=== PATIENT | female | born 1960 | race African-American/Black ===

== ENCOUNTER 2016-11-28 13:11 | Outpatient (CLI) | payer MEDICAID ==
[2016-11-28] MEDS ORDERED: CELE200C PO (13:47)
[2016-11-28] MEDS ORDERED: HYDR10TA4 PO (13:47)
[2016-11-28] MEDS ORDERED: SERT50TA5 PO (13:47)
[2016-11-28 14:37] LABS: BLOOD UREA NITROGEN 11 mg/dL (7-18)
[2016-11-28 14:40] LABS: ASPARTATE AMINO TRANSFERASE 237 U/L (15-37)
[2016-11-28 15:21] LABS: HIV 1&2 ANTIBODY SCREEN Nonreactive (Nonreactive); HIV-1 p24 ANTIGEN Nonreactive (Nonreactive)
[2016-12-09] MEDS ORDERED: OxyconTIN ER 10 MG TAB.ER ONE (11:04)
== END 2016-12-10 13:30 | disposition home or self-care (01) ==
LOC: STAR 13:11
PROVIDERS: ATTEND Orthopaedic Surgery
DX: Z01.818 Encounter for other preprocedural examination (principal); M16.11 Unilateral primary osteoarthritis, right hip
CPT/HCPCS: 36415; 80053; 83036; 85025; 85610; 85730; 86703; 87081; 87147; 87899; 93005; G0435

== ENCOUNTER 2016-12-09 12:45 | Inpatient (IN) | payer MEDICAID ==
[~2016-12-09] VITALS: Ht 167.6 cm; Wt 69.1 kg
[~2016-12-09 12:45] MED LIST: BISACODYL 10 MG SUPP PR PRN; CEFAZOLIN 1,000 MG ONE; CELE200C PO; DEXAMETHASONE 4 MG/ML, 1ML ONE; DIPHENHYDRAMINE 25 MG CAPSULE PO PRN; EPINEPHRINE 1 MG/ML, 1ML ONE; FENTANYL PF 250 MCG/5ML ONE; GABAPENTIN 300 MG CAPSULE ONE; GABAPENTIN 300 MG CAPSULE PO ONE; HYDR10TA4 PO; KETAMINE 10 MG/ML, 20ML ONE; KETOROLAC 60 MG/2 ML ONE; MAGNESIUM HYDROXIDE 8%, 30ML UDC PO PRN; MIDAZOLAM 1 MG/ML, 2ML ONE; ONDANSETRON 2MG/ML, 2ML IVPush PRN; ONDANSETRON 2MG/ML, 2ML ONE; ONDANSETRON ODT 4 MG PO PRN; PHENYLEPHRINE 10 MG/ML ONE; POTASSIUM CHLORIDE 20 MEQ in D5%-0.45% NACL 1,000 ML IV SCH; PROMETHAZINE 25 MG SUPP PR PRN; PROPOFOL 10 MG/ML, 50ML ONE; ROPIvacaine/PF 0.2%, 20 ML ONE; SENNA/DOCUSATE TABLET PO PRN; SERT50TA5 PO; SERTRALINE 50MG TABLET PO SCH; SODIUM CHLORIDE 0.9% 50 ML ONE; TRANEXAMIC ACID 100 MG/ML, 10ML ONE; ZOLPIDEM 5MG TABLET PO PRN; hydrOXyzine 10MG TABLET PO PRN
[2016-12-09] MEDS ORDERED: OXYcodone 5 MG/5 ML ORAL.SOL UDC ONE (15:14)
[2016-12-09] MEDS ORDERED: HYDROmorphone 1 MG/ML, 1ML ONE (17:24)
[2016-12-09] MEDS: HYDROmorphone 1 MG/ML, 1ML IV PRN (17:28)
[2016-12-09] MEDS ORDERED: OXYcodone IR 5MG TABLET ONE (20:26)
[2016-12-09] MEDS: CEFAZOLIN PMX 1GM/50ML 50 ML IVPB SCH (20:34)
[2016-12-09] MEDS: DIAZEPAM 5 MG TABLET PO PRN (22:03)
[2016-12-09] MEDS ORDERED: DIAZEPAM 5 MG TABLET ONE (22:05)
[2016-12-10] MEDS ORDERED: DOCUSATE 100 MG CAPSULE ONE (00:02)
[2016-12-10] MEDS: DOCUSATE 100 MG CAPSULE PO SCH ×2 (00:03→08:40)
[2016-12-10] MEDS ORDERED: OXYcodone IR 5MG TABLET ONE ×4 (00:19→13:22)
[2016-12-10] MEDS: OXYcodone 5 MG/5 ML ORAL.SOL UDC PO PRN ×3 (00:33→08:40)
[2016-12-10] MEDS: HYDROmorphone 1 MG/ML, 1ML IV PRN ×2 (03:00→06:45)
[2016-12-10] MEDS ORDERED: HYDROmorphone 1 MG/ML, 1ML ONE ×2 (03:00→06:44)
[2016-12-10] MEDS ORDERED: DIAZEPAM 5 MG TABLET ONE ×2 (03:10→08:27)
[2016-12-10] MEDS: DIAZEPAM 5 MG TABLET PO PRN ×2 (03:11→08:40)
[2016-12-10] MEDS ORDERED: CEFAZOLIN PMX 1GM/50ML 50 ML ONE (04:36)
[2016-12-10] MEDS: CEFAZOLIN PMX 1GM/50ML 50 ML IVPB SCH (04:40)
[2016-12-10] MEDS ORDERED: TAMSULOSIN 0.4 MG CAP.ER.24H PO SCH (06:00)
[2016-12-10] MEDS ORDERED: ASPIRIN 81 MG TABLET EC PO SCH (09:00)
[2016-12-10] MEDS ORDERED: DEXAMETHASONE 4 MG/ML, 1ML IV ONE (09:00)
[2016-12-10] MEDS ORDERED: KETOROLAC 30 MG/1 ML IV SCH (12:40)
[2016-12-10] MEDS ORDERED: SCOPOLAMINE PATCH, 1.5MG PATCH.TD72 TD PRN (13:30)
[2016-12-11] MEDS ORDERED: LACTATED RINGERS 1,000 ML IV SCH (12:21)
[2016-12-11] MEDS ORDERED: VANCOMYCIN 1,400 MG in SODIUM CHLORIDE 0.9% 250 ML IV ONE (12:30)
[2016-12-11] MEDS ORDERED: PHARMACOKINETIC CONSULTATION MC ONE (12:30)
[2016-12-11] MEDS ORDERED: VANCOMYCIN PER PHARMACY MC ONE (12:30)
[2016-12-11] MEDS ORDERED: OxyconTIN ER 10 MG TAB.ER PO ONE (13:00)
== END 2016-12-10 10:43 | disposition home or self-care (01) | DRG 470 ==
LOC: ORIP 12:45
PROVIDERS: ADMIT Orthopaedic Surgery; ATTEND Orthopaedic Surgery
PROC: 0SR902Z Replacement of Right Hip Joint with Metal on Polyethylene Synthetic Substitute, Open Approach (ICD-10-PCS; principal; 2016-12-09 12:45)
DX: M16.11 Unilateral primary osteoarthritis, right hip (principal); F32.9 Major depressive disorder, single episode, unspecified
CPT/HCPCS: 36415; 86850; 86900; C1713; J0171; J0690; J1100; J1170; J1885; J2250; J2405; J2704; J2795; J3010; J3480; C1776; J2370

== ENCOUNTER 2016-12-21 15:20 | Emergency (ER) | payer MEDICAID ==
[~2016-12-21] VITALS: Ht 167.6 cm; Wt 68.5 kg
[~2016-12-21 15:20] MED LIST changes: -BISACODYL 10 MG SUPP PR PRN; -CEFAZOLIN 1,000 MG ONE; -DEXAMETHASONE 4 MG/ML, 1ML ONE; -DIPHENHYDRAMINE 25 MG CAPSULE PO PRN; -EPINEPHRINE 1 MG/ML, 1ML ONE; -FENTANYL PF 250 MCG/5ML ONE; -GABAPENTIN 300 MG CAPSULE ONE; -GABAPENTIN 300 MG CAPSULE PO ONE; -KETAMINE 10 MG/ML, 20ML ONE; -KETOROLAC 60 MG/2 ML ONE; -MAGNESIUM HYDROXIDE 8%, 30ML UDC PO PRN; -MIDAZOLAM 1 MG/ML, 2ML ONE; -ONDANSETRON 2MG/ML, 2ML IVPush PRN; -ONDANSETRON 2MG/ML, 2ML ONE; -ONDANSETRON ODT 4 MG PO PRN; -PHENYLEPHRINE 10 MG/ML ONE; -POTASSIUM CHLORIDE 20 MEQ in D5%-0.45% NACL 1,000 ML IV SCH; -PROMETHAZINE 25 MG SUPP PR PRN; -PROPOFOL 10 MG/ML, 50ML ONE; -ROPIvacaine/PF 0.2%, 20 ML ONE; -SENNA/DOCUSATE TABLET PO PRN; -SERTRALINE 50MG TABLET PO SCH; -SODIUM CHLORIDE 0.9% 50 ML ONE; -TRANEXAMIC ACID 100 MG/ML, 10ML ONE; -ZOLPIDEM 5MG TABLET PO PRN; -hydrOXyzine 10MG TABLET PO PRN
[2016-12-21] MEDS ORDERED: ASPI-515 PO (15:58)
[2016-12-21] MEDS ORDERED: BISA-49 PO (15:58)
[2016-12-21] MEDS ORDERED: HYDR-3240 PO ×2 (15:58)
[2016-12-21 16:40] LABS: BLOOD UREA NITROGEN 13 mg/dL (7-18)
[2016-12-21 16:41] LABS: ACETAMINOPHEN < 2 mcg/mL (10-30)
[2016-12-21 17:43] VITALS: BP 114/78
== END 2016-12-21 17:46 | disposition home or self-care (01) ==
LOC: ED 16:39
DX: G56.03 Carpal tunnel syndrome, bilateral upper limbs (principal)
CPT/HCPCS: 36415; 80048; 80307; 80329; 82040; 82330; 85025; 99284; G0480

== ENCOUNTER → 2017-10-29 | Outpatient (CLI) | payer MEDICAID ==
[~2017-10-29] MED LIST changes: +ALBU18HF INH; +ASPI-515 PO; +BISA-49 PO; +HYDR-3240 PO; +IBUP-1223 PO; +LISI-170 PO
[2017-10-29 14:05] LABS: MICROSCOPIC NOT IND
[2017-10-29 14:10] LABS: CULTURE INDICATED? NO
[2017-10-29 14:16] LABS: BASOPHILS # (AUTO) 0.05 x10^3/uL (0-0.1); BASOPHILS % (AUTO) 1 % (0-1); EOSINOPHILS # (AUTO) 0.12 x10^3/uL (0-0.4); EOSINOPHILS % (AUTO) 2 % (1-7); LYMPHOCYTES # (AUTO) 2.58 x10^3/uL (1-3.4); LYMPHOCYTES % (AUTO) 43 % (22-44); MD NO; MEAN CORPUSCULAR HEMOGLOBIN 31.1 pg (27.0-34.8); MEAN CORPUSCULAR HGB CONC 34.3 g/dL (32.4-35.8); MEAN CORPUSCULAR VOLUME 90.8 fL (80-100); MEAN PLATELET VOLUME 8.3 fL (7.4-10.4); MONOCYTES # (AUTO) 0.38 x10^3/uL (0.2-0.8); MONOCYTES % (AUTO) 6 % (2-9); NEUTROPHILS # (AUTO) 2.91 x10^3/uL (1.8-6.8); NEUTROPHILS % (AUTO) 48 % (42-75); PLATELET COUNT 298 x10^3/uL (130-400); RED BLOOD COUNT 4.59 x10^6/uL (3.82-5.3); RED CELL DISTRIBUTION WIDTH 13.6 % (9.6-15.2)
[2017-10-29 14:21] LABS: ALBUMIN 4.1 g/dL (3.4-5.0); ANION GAP 7 mmol/L (5-15); CALCIUM 9.5 mg/dL (8.5-10.1); CHLORIDE 105 mmol/L (98-107)
[2017-10-29 14:25] LABS: ALANINE AMINOTRANSFERASE 30 U/L (12-78); ALKALINE PHOSPHATASE 119 U/L (45-117); BILIRUBIN,TOTAL 0.3 mg/dL (0.2-1.0); CREATININE 1.09 mg/dL (0.55-1.02); TOTAL PROTEIN 9.1 g/dL (6.4-8.2)
[2017-10-29 14:31] LABS: PROTHROMBIN TIME 10.4 Seconds (9.6-11.5)
[2017-10-29 14:43] LABS: HEMOGLOBIN A1C 5.6 % (4.2-6.3)
== END | disposition home or self-care (01) ==
LOC: STAR 12:37
PROVIDERS: ATTEND Orthopaedic Surgery
DX: Z01.818 Encounter for other preprocedural examination (principal); M16.12 Unilateral primary osteoarthritis, left hip; R79.89 Other specified abnormal findings of blood chemistry
CPT/HCPCS: 36415; 80053; 81003; 83036; 85025; 85610; 85730; 87081; 87806; G0475

== ENCOUNTER 2017-12-08 07:09 | Inpatient (IN) | payer MEDICAID ==
[~2017-12-08] VITALS: Ht 167.6 cm; Wt 85.4 kg
[~2017-12-08 07:09] MED LIST changes: +EPINEPHRINE 1 MG/ML, 1ML ONE; +KETOROLAC 60 MG/2 ML ONE; +ROPIvacaine/PF 0.2%, 20 ML ONE; +TRANEXAMIC ACID 100 MG/ML, 10ML ONE
[2017-12-08] MEDS ORDERED: LACTATED RINGERS 1,000 ML IV SCH (07:33)
[2017-12-08] MEDS ORDERED: LIDOCAINE-MPF 1%, 2ML ONE (07:51)
[2017-12-08] MEDS ORDERED: LISI30TA4 PO (08:00)
[2017-12-08] MEDS ORDERED: ACETAMINOPHEN 500 MG TABLET PO ONE (08:00)
[2017-12-08] MEDS ORDERED: PLEASE ENTER HEIGHT AND WEIGHT MC SCH (08:00)
[2017-12-08] MEDS ORDERED: VANCOMYCIN PER PHARMACY MC ONE (08:00)
[2017-12-08] MEDS ORDERED: GABAPENTIN 300 MG CAPSULE PO ONE (08:00)
[2017-12-08] MEDS ORDERED: LIDOCAINE-MPF 1%, 2ML INFIL ONE (08:00)
[2017-12-08] MEDS ORDERED: VANCOMYCIN 1,400 MG in SODIUM CHLORIDE 0.9% 250 ML IV ONE (08:00)
[2017-12-08] MEDS ORDERED: FENTANYL PF 100 MCG/2ML ONE (08:38)
[2017-12-08] MEDS ORDERED: MIDAZOLAM 1 MG/ML, 2ML ONE (08:38)
[2017-12-08] MEDS ORDERED: ONDANSETRON ODT 8 MG PO ONE (08:40)
[2017-12-08] MEDS ORDERED: DIAZEPAM 5 MG TABLET PO ONE (09:00)
[2017-12-08] MEDS ORDERED: OxyconTIN ER 20 MG TAB.ER PO ONE (09:00)
[2017-12-08] MEDS ORDERED: PROPOFOL 50 ML ONE ×2 (09:27→10:31)
[2017-12-08] MEDS ORDERED: CEFAZOLIN 1,000 MG ONE (09:30)
[2017-12-08] MEDS ORDERED: DEXAMETHASONE 4 MG/ML, 1ML ONE ×2 (10:26)
[2017-12-08] MEDS ORDERED: PROMETHAZINE 25 MG/ML, 1ML IV PRN (10:30)
[2017-12-08] MEDS ORDERED: EPHEDRINE 50 MG/ML, 1ML IM PRN (10:30)
[2017-12-08] MEDS ORDERED: SCOPOLAMINE PATCH, 1.5MG PATCH.TD72 TD PRN ×2 (10:30→11:30)
[2017-12-08] MEDS ORDERED: OXYcodone 5 MG/5 ML ORAL.SOL UDC PO PRN (10:30)
[2017-12-08] MEDS ORDERED: MORPHINE SULFATE 4 MG/ML, 1ML IVPush PRN (10:30)
[2017-12-08] MEDS ORDERED: PROMETHAZINE 25 MG/ML, 1ML IM PRN (10:30)
[2017-12-08] MEDS ORDERED: ALBUTEROL/IPRATROPIUM 2.5MG/0.5MG, 3 ML NPPB PRN (10:30)
[2017-12-08] MEDS ORDERED: MEPERIDINE/PF 25MG/0.5ML IVPush PRN (10:30)
[2017-12-08] MEDS ORDERED: LABETALOL 5MG/ML, 20ML IV PRN (10:30)
[2017-12-08] MEDS ORDERED: hydrALAzine 20 MG/ML, 1ML IV PRN (10:30)
[2017-12-08] MEDS ORDERED: DIAZEPAM 5 MG/ML, 2ML IVPush PRN (10:30)
[2017-12-08] MEDS ORDERED: MIDAZOLAM 1 MG/ML, 2ML IV PRN (10:30)
[2017-12-08] MEDS ORDERED: DIAZEPAM 5 MG TABLET PO PRN (11:30)
[2017-12-08] MEDS ORDERED: CEFAZOLIN PMX 1GM/50ML 50 ML IVPB SCH (11:30)
[2017-12-08] MEDS ORDERED: MAGNESIUM HYDROXIDE 8%, 30ML UDC PO PRN (11:30)
[2017-12-08] MEDS ORDERED: OXYcodone IR 5MG TABLET PO PRN (11:30)
[2017-12-08] MEDS ORDERED: PROMETHAZINE 12.5 MG SUPP PR PRN (11:30)
[2017-12-08] MEDS ORDERED: ONDANSETRON 4 MG TABLET PO PRN (11:30)
[2017-12-08] MEDS ORDERED: DIPHENHYDRAMINE 25 MG CAPSULE PO PRN (11:30)
[2017-12-08] MEDS ORDERED: ONDANSETRON 2MG/ML, 2ML IV PRN (11:30)
[2017-12-08] MEDS ORDERED: TRANEXAMIC ACID 1,000 MG in SODIUM CHLORIDE 0.9% 100 ML IVPB ONE (11:30)
[2017-12-08 14:00] VITALS: BP 147/97
[2017-12-08] MEDS: HYDROcodone/APAP 5/325 TABLET PO PRN (15:42)
[2017-12-08] MEDS ORDERED: PNEUMOCOCCAL 23 VACCINE IM-VACC ONE (17:00)
[2017-12-08] MEDS: HYDROmorphone 1 MG/ML, 1ML IV PRN ×2 (17:36→20:12)
[2017-12-08 19:20] VITALS: BP 151/91
[2017-12-08] MEDS: LISINOPRIL 10 MG TABLET PO SCH (20:13)
[2017-12-08] MEDS: DOCUSATE 100 MG CAPSULE PO SCH (21:00)
[2017-12-08] MEDS ORDERED: hydrOXyzine 10MG TABLET PO SCH (21:00)
[2017-12-08] MEDS: CEFAZOLIN PMX 1GM/50ML 50 ML IVPB SCH (22:19)
[2017-12-09] VITALS: BP 152/81
[2017-12-09] MEDS: HYDROmorphone 1 MG/ML, 1ML IV PRN ×4 (02:01→20:31)
[2017-12-09 03:54] VITALS: BP 144/82
[2017-12-09] MEDS: CEFAZOLIN PMX 1GM/50ML 50 ML IVPB SCH (05:56)
[2017-12-09 07:33] VITALS: BP 166/101
[2017-12-09] MEDS ORDERED: FENTANYL PF 100 MCG/2ML ONE (08:29)
[2017-12-09] MEDS ORDERED: hydrALAzine 20 MG/ML, 1ML IV PRN (08:30)
[2017-12-09] MEDS ORDERED: MIDAZOLAM 1 MG/ML, 2ML IV PRN (08:30)
[2017-12-09] MEDS ORDERED: FENTANYL PF 100 MCG/2ML IV PRN (08:30)
[2017-12-09] MEDS ORDERED: PROMETHAZINE 25 MG/ML, 1ML IV PRN (08:30)
[2017-12-09] MEDS ORDERED: ONDANSETRON ODT 8 MG PO PRN (08:30)
[2017-12-09] MEDS ORDERED: OXYcodone 5 MG/5 ML ORAL.SOL UDC PO PRN (08:30)
[2017-12-09] MEDS ORDERED: ALBUTEROL SULFATE 2.5 MG/3 ML NPPB PRN (08:30)
[2017-12-09] MEDS ORDERED: PROMETHAZINE 12.5 MG SUPP PR PRN (08:30)
[2017-12-09] MEDS ORDERED: MEPERIDINE/PF 25MG/0.5ML IVPush PRN (08:30)
[2017-12-09] MEDS ORDERED: LABETALOL 5MG/ML, 20ML IV PRN (08:30)
[2017-12-09] MEDS: FENTANYL PF 100 MCG/2ML IV PRN ×2 (08:31→08:40)
[2017-12-09] MEDS ORDERED: OXYcodone 5 MG/5 ML ORAL.SOL UDC ONE (08:32)
[2017-12-09] MEDS ORDERED: MORPHINE SULFATE 4 MG/ML, 1ML ONE ×2 (08:56→09:15)
[2017-12-09] MEDS: MORPHINE SULFATE 4 MG/ML, 1ML IVPush PRN ×3 (08:58→09:18)
[2017-12-09] MEDS ORDERED: LABETALOL 5MG/ML, 20ML ONE (09:03)
[2017-12-09] MEDS: SERTRALINE 50MG TABLET PO SCH (10:24)
[2017-12-09] MEDS: DOCUSATE 100 MG CAPSULE PO SCH ×2 (10:24→20:32)
[2017-12-09] MEDS: LISINOPRIL 10 MG TABLET PO SCH ×2 (10:24→20:32)
[2017-12-09 13:14] VITALS: BP 134/77
[2017-12-09] MEDS ORDERED: KETOROLAC 30 MG/1 ML IV SCH (14:00)
[2017-12-09] MEDS: ASPIRIN 325 MG TABLET EC PO SCH (18:11)
[2017-12-09 19:20] VITALS: BP 159/69
[2017-12-09] MEDS: hydrOXyzine 50MG TABLET PO SCH (21:00)
[2017-12-09 23:45] VITALS: BP 160/86
[2017-12-10 02:19] VITALS: BP 156/71
[2017-12-10] MEDS: HYDROcodone/APAP 5/325 TABLET PO PRN ×2 (03:25→08:07)
[2017-12-10] MEDS: ASPIRIN 325 MG TABLET EC PO SCH (06:13)
[2017-12-10 07:20] VITALS: BP 160/89
[2017-12-10] MEDS: hydrOXyzine 50MG TABLET PO SCH (08:07)
[2017-12-10] MEDS: SERTRALINE 50MG TABLET PO SCH (08:08)
[2017-12-10] MEDS: LISINOPRIL 10 MG TABLET PO SCH (08:08)
[2017-12-10] MEDS: DOCUSATE 100 MG CAPSULE PO SCH (08:08)
[2017-12-10] MEDS ORDERED: ONDA4TAB7 PO (09:00)
[2017-12-10] MEDS ORDERED: OXYC5CAP2 PO (09:00)
[2017-12-10] MEDS ORDERED: DOCU-131 PO (09:00)
[2017-12-10] MEDS ORDERED: DIAZ5TAB PO (09:00)
[2017-12-10] MEDS ORDERED: CELE200C PO (09:00)
[2017-12-10] MEDS ORDERED: TRAM50TA2 PO (09:01)
== END 2017-12-10 12:05 | disposition home or self-care (01) | DRG 470 ==
LOC: INTOOBSV 07:09 → ORIP 07:09 → 4NOR 13:47 → OBSVTOIN 12-09 14:53 → DCLOUNGE 12-10 11:50
PROVIDERS: ADMIT Orthopaedic Surgery; ATTEND Orthopaedic Surgery
PROC: 0SRB0JZ Replacement of Left Hip Joint with Synthetic Substitute, Open Approach (ICD-10-PCS; principal; 2017-12-08 09:30)
PROC: 0SSBXZZ Reposition Left Hip Joint, External Approach (ICD-10-PCS; 2017-12-09)
DX: T84.021A Dislocation of internal left hip prosthesis, initial encounter (principal); M16.12 Unilateral primary osteoarthritis, left hip; Y83.8 Other surgical procedures as the cause of abnormal reaction of the patient, or of later complication, without mention of misadventure at the time of the procedure; Y79.2 Prosthetic and other implants, materials and accessory orthopedic devices associated with adverse incidents; Y92.89 Other specified places as the place of occurrence of the external cause
CPT/HCPCS: 36415; 72170; 73523; 76000; 86850; 86900; C1713; G0378; J0171; J0690; J1100; J1170; J1885; J2250; J2704; J2795; J3010; J3370; J3490; Q0162; C1776; J7050; J7120; Q0163

== ENCOUNTER 2017-12-17 21:17 | Observation (INO) | payer MEDICAID ==
[~2017-12-17] VITALS: Ht 167.6 cm; Wt 73.1 kg
[~2017-12-17 21:17] MED LIST changes: +DIAZ5TAB PO; +DOCU-131 PO; -EPINEPHRINE 1 MG/ML, 1ML ONE; -KETOROLAC 60 MG/2 ML ONE; +LISI30TA4 PO; +ONDA4TAB7 PO; +OXYC5CAP2 PO; -ROPIvacaine/PF 0.2%, 20 ML ONE; +TRAM50TA2 PO; -TRANEXAMIC ACID 100 MG/ML, 10ML ONE
[2017-12-17] MEDS ORDERED: SODIUM CHLORIDE FLUSH 10ML SYR IVF ONE (23:00)
[2017-12-17 23:23] LABS: BASOPHILS # (AUTO) 0.02 x10^3/uL (0-0.1); BASOPHILS % (AUTO) 0 % (0-1); EOSINOPHILS # (AUTO) 0.14 x10^3/uL (0-0.4); EOSINOPHILS % (AUTO) 2 % (1-7); LYMPHOCYTES # (AUTO) 2.65 x10^3/uL (1-3.4); LYMPHOCYTES % (AUTO) 35 % (22-44); MD NO; MEAN CORPUSCULAR HEMOGLOBIN 30.2 pg (27.0-34.8); MEAN CORPUSCULAR HGB CONC 33.7 g/dL (32.4-35.8); MEAN CORPUSCULAR VOLUME 89.6 fL (80-100); MEAN PLATELET VOLUME 7.7 fL (7.4-10.4); MONOCYTES # (AUTO) 0.68 x10^3/uL (0.2-0.8); MONOCYTES % (AUTO) 9 % (2-9); NEUTROPHILS # (AUTO) 4.15 x10^3/uL (1.8-6.8); NEUTROPHILS % (AUTO) 54 % (42-75); PLATELET COUNT 401 x10^3/uL (130-400); RED BLOOD COUNT 3.64 x10^6/uL (3.82-5.3); RED CELL DISTRIBUTION WIDTH 12.8 % (9.6-15.2)
[2017-12-17 23:35] LABS: ANION GAP 9 mmol/L (5-15); CHLORIDE 101 mmol/L (98-107)
[2017-12-17 23:40] LABS: ALANINE AMINOTRANSFERASE 24 U/L (12-78); ALKALINE PHOSPHATASE 107 U/L (45-117); BILIRUBIN,TOTAL 0.2 mg/dL (0.2-1.0); CREATININE 1.03 mg/dL (0.55-1.02); TOTAL PROTEIN 7.5 g/dL (6.4-8.2); TROPONIN I < 0.015 ng/mL (0.000-0.045)
[2017-12-18] MEDS ORDERED: OMNIPAQUE 350 MG/ML, 100ML BOTTLE ONE (01:23)
[2017-12-18] MEDS ORDERED: D5%-0.45NACL+KCL 20MEQ 1,000 ML IV SCH (02:08)
[2017-12-18] MEDS ORDERED: NICOTINE 7 MG/24 HR PATCH.TD24 TD SCH (02:30)
[2017-12-18] MEDS ORDERED: ACETAMINOPHEN 325 MG TABLET PO PRN (02:30)
[2017-12-18] MEDS ORDERED: ENOXAPARIN 40 MG/0.4 ML SQ SCH (02:30)
[2017-12-18] MEDS ORDERED: LABETALOL 5MG/ML, 20ML IVPush PRN (02:30)
[2017-12-18] MEDS ORDERED: ONDANSETRON 2MG/ML, 2ML IVPush PRN (02:30)
[2017-12-18] MEDS ORDERED: TEMAZEPAM 15 MG CAPSULE PO PRN (02:30)
[2017-12-18] MEDS ORDERED: ONDANSETRON ODT 4 MG PO PRN (02:30)
[2017-12-18] MEDS ORDERED: NITROGLYCERIN 0.4 MG BOTTLE (25 TABS) SL PRN (02:30)
[2017-12-18] MEDS ORDERED: DOCUSATE 100 MG CAPSULE PO PRN (02:30)
[2017-12-18 02:54] LABS: TROPONIN I < 0.015 ng/mL (0.000-0.045)
[2017-12-18] MEDS ORDERED: ENOXAPARIN 40 MG/0.4 ML ONE (02:55)
[2017-12-18] MEDS ORDERED: NICOTINE 7 MG/24 HR PATCH.TD24 ONE (03:13)
[2017-12-18] MEDS ORDERED: ASPIRIN 325 MG TABLET EC PO SCH (06:00)
[2017-12-18 08:19] LABS: TROPONIN I < 0.015 ng/mL (0.000-0.045)
[2017-12-18] MEDS ORDERED: REGADENOSON 0.4 MG/5 ML SYRINGE ONE (08:31)
[2017-12-18] MEDS ORDERED: FAMOTIDINE 20 MG/2 ML IVPush SCH (09:00)
[2017-12-18] MEDS ORDERED: FAMOTIDINE 20 MG/2 ML ONE (10:04)
[2017-12-18 11:52] VITALS: BP 130/82
[2017-12-18] MEDS ORDERED: OXYcodone IR 5MG TABLET PO PRN (12:00)
[2017-12-18 13:22] VITALS: BP 137/91
== END 2017-12-18 18:04 | disposition home or self-care (01) ==
LOC: ED 12-18 02:22 → INTOOBSV 12-18 02:47 → EDIP 12-18 02:47 → 5SO 12-18 11:25
PROVIDERS: ADMIT Internal Medicine; ATTEND Internal Medicine
DX: R07.9 Chest pain, unspecified (principal); I10 Essential (primary) hypertension; F32.9 Major depressive disorder, single episode, unspecified; R00.0 Tachycardia, unspecified; R79.1 Abnormal coagulation profile; F17.210 Nicotine dependence, cigarettes, uncomplicated; F12.90 Cannabis use, unspecified, uncomplicated; F41.9 Anxiety disorder, unspecified; Z96.642 Presence of left artificial hip joint
CPT/HCPCS: 36415; 71045; 71275; 78452; 80053; 84484; 85025; 85379; 93005; 93017; 93306; 93970; 96361; 96372; 96374; 99285; A9502; C9898; G0378; J1650; J2785; J3480; Q9967; S0028

== ENCOUNTER 2017-12-21 11:50 | Inpatient (IN) | payer MEDICAID ==
[~2017-12-21] VITALS: Ht 167.6 cm; Wt 77.7 kg
[2017-12-21] MEDS ORDERED: FENTANYL PF 100 MCG/2ML IV ONE ×2 (12:00→14:30)
[2017-12-21] MEDS ORDERED: FENTANYL PF 100 MCG/2ML ONE ×2 (12:00→12:55)
[2017-12-21] MEDS ORDERED: PROPOFOL 10 MG/ML, 20ML ONE ×2 (12:54→14:05)
[2017-12-21] MEDS ORDERED: hydrALAzine 20 MG/ML, 1ML ONE (13:49)
[2017-12-21] MEDS ORDERED: hydrALAzine 20 MG/ML, 1ML IV ONE (14:00)
[2017-12-21] MEDS ORDERED: PROPOFOL 10 MG/ML, 20ML IVPush ONE (14:30)
[2017-12-21] MEDS ORDERED: OXYcodone/APAP 10/325MG TABLET ONE (15:08)
[2017-12-21] MEDS ORDERED: LISINOPRIL 10 MG TABLET ONE (15:08)
[2017-12-21] MEDS ORDERED: LISINOPRIL 20 MG TABLET ONE (15:08)
[2017-12-21] MEDS ORDERED: OXYcodone/APAP 10/325MG TABLET PO ONE (15:30)
[2017-12-21] MEDS ORDERED: LISINOPRIL 20 MG TABLET PO ONE (15:30)
[2017-12-21 15:50] LABS: BASOPHILS # (AUTO) 0.04 x10^3/uL (0-0.1); BASOPHILS % (AUTO) 0 % (0-1); EOSINOPHILS # (AUTO) 0.03 x10^3/uL (0-0.4); EOSINOPHILS % (AUTO) 0 % (1-7); LYMPHOCYTES # (AUTO) 1.27 x10^3/uL (1-3.4); LYMPHOCYTES % (AUTO) 11 % (22-44); MD NO; MEAN CORPUSCULAR HGB CONC 33.4 g/dL (32.4-35.8); MEAN CORPUSCULAR VOLUME 89.7 fL (80-100); MEAN PLATELET VOLUME 7.7 fL (7.4-10.4); MONOCYTES % (AUTO) 3 % (2-9); NEUTROPHILS # (AUTO) 10.35 x10^3/uL (1.8-6.8); NEUTROPHILS % (AUTO) 86 % (42-75); PLATELET COUNT 462 x10^3/uL (130-400); RED BLOOD COUNT 4.17 x10^6/uL (3.82-5.3); RED CELL DISTRIBUTION WIDTH 13.1 % (9.6-15.2)
[2017-12-21 15:57] LABS: ALBUMIN 3.4 g/dL (3.4-5.0); ANION GAP 7 mmol/L (5-15); CALCIUM 9.3 mg/dL (8.5-10.1); CHLORIDE 106 mmol/L (98-107); CREATININE 0.98 mg/dL (0.55-1.02)
[2017-12-21 16:00] LABS: TROPONIN I < 0.015 ng/mL (0.000-0.045)
[2017-12-21] MEDS ORDERED: SODIUM CHLORIDE 0.9% 1,000 ML IV SCH (16:58)
[2017-12-21] MEDS ORDERED: DOCUSATE 100 MG CAPSULE PO PRN ×2 (17:00)
[2017-12-21] MEDS ORDERED: BISACODYL 10 MG SUPP PR PRN (17:00)
[2017-12-21] MEDS ORDERED: ONDANSETRON 2MG/ML, 2ML IVPush PRN (17:00)
[2017-12-21] MEDS ORDERED: POLYETHYLENE GLYCOL 17 GM PACKET PO PRN (17:00)
[2017-12-21] MEDS ORDERED: hydrALAzine 20 MG/ML, 1ML IVPush PRN (17:00)
[2017-12-21] MEDS ORDERED: ALBUTEROL SULFATE 2.5 MG/3 ML NPPB PRN (17:00)
[2017-12-21] MEDS ORDERED: ACETAMINOPHEN 325 MG TABLET PO PRN (17:00)
[2017-12-21 17:35] LABS: INTERNATIONAL NORMALIZED RATIO 1.03 (0.93-1.1); PROTHROMBIN TIME 10.6 Seconds (9.6-11.5)
[2017-12-21] MEDS: morphine SULFATE 10 MG/ML, 1ML IVPush PRN ×2 (19:48→20:44)
[2017-12-21] MEDS: DIAZEPAM 5 MG TABLET PO PRN (19:48)
[2017-12-21 20:20] VITALS: BP 170/99
[2017-12-21] MEDS ORDERED: PNEUMOCOCCAL 23 VACCINE IM-VACC ONE (20:30)
[2017-12-21] MEDS ORDERED: hydrOXyzine 50MG TABLET ONE (20:38)
[2017-12-21] MEDS: LISINOPRIL 10 MG TABLET PO SCH (20:45)
[2017-12-21] MEDS: hydrOXyzine 10MG TABLET PO SCH (20:47)
[2017-12-21] MEDS: OXYcodone IR 5MG TABLET PO PRN (22:51)
[2017-12-21] MEDS: ASPIRIN 81 MG TABLET EC PO SCH (22:51)
[2017-12-22 01:57] VITALS: BP 138/87
[2017-12-22] MEDS: morphine SULFATE 10 MG/ML, 1ML IVPush PRN ×2 (05:01→22:32)
[2017-12-22] MEDS: OXYcodone IR 5MG TABLET PO PRN ×2 (05:01→20:11)
[2017-12-22 05:38] LABS: BASOPHILS # (AUTO) 0.04 x10^3/uL (0-0.1); BASOPHILS % (AUTO) 0 % (0-1); EOSINOPHILS # (AUTO) 0.17 x10^3/uL (0-0.4); EOSINOPHILS % (AUTO) 2 % (1-7); LYMPHOCYTES # (AUTO) 1.93 x10^3/uL (1-3.4); LYMPHOCYTES % (AUTO) 22 % (22-44); MD NO; MEAN CORPUSCULAR HEMOGLOBIN 30.2 pg (27.0-34.8); MEAN CORPUSCULAR HGB CONC 33.4 g/dL (32.4-35.8); MEAN CORPUSCULAR VOLUME 90.3 fL (80-100); MONOCYTES # (AUTO) 0.58 x10^3/uL (0.2-0.8); MONOCYTES % (AUTO) 7 % (2-9); NEUTROPHILS # (AUTO) 6.15 x10^3/uL (1.8-6.8); NEUTROPHILS % (AUTO) 69 % (42-75); PLATELET COUNT 449 x10^3/uL (130-400); RED BLOOD COUNT 3.93 x10^6/uL (3.82-5.3); RED CELL DISTRIBUTION WIDTH 13.4 % (9.6-15.2)
[2017-12-22 05:46] LABS: ANION GAP 7 mmol/L (5-15); CALCIUM 9.3 mg/dL (8.5-10.1); CHLORIDE 106 mmol/L (98-107); CREATININE 0.93 mg/dL (0.55-1.02)
[2017-12-22 07:18] VITALS: BP 121/77
[2017-12-22] MEDS: ASPIRIN 81 MG TABLET EC PO SCH ×2 (09:00→20:11)
[2017-12-22 09:41] LABS: HCG UR SG 1.011 (1.003-1.030)
[2017-12-22] MEDS: SERTRALINE 50MG TABLET PO SCH (09:42)
[2017-12-22] MEDS: LISINOPRIL 10 MG TABLET PO SCH ×2 (09:42→20:11)
[2017-12-22] MEDS: hydrOXyzine 10MG TABLET PO SCH ×2 (09:43→20:41)
[2017-12-22 09:46] LABS: AMPHETAMINE SCREEN, URINE Negative (Negative); BARBITURATE SCREEN, URINE Negative (Negative); BENZODIAZEPINE SCREEN, URINE Positive (Negative); CANNABINOID SCREEN, URINE Positive (Negative); COCAINE SCREEN, URINE Negative (Negative); METHADONE SCREEN, URINE Negative (Negative); OPIATE SCREEN, URINE Positive (Negative)
[2017-12-22] MEDS ORDERED: KETOROLAC 60 MG/2 ML ONE (10:16)
[2017-12-22] MEDS ORDERED: EPINEPHRINE 1 MG/ML, 1ML ONE (10:16)
[2017-12-22] MEDS ORDERED: ROPIvacaine/PF 0.2%, 20 ML ONE (10:16)
[2017-12-22] MEDS ORDERED: TRANEXAMIC ACID 100 MG/ML, 10ML ONE ×4 (10:16)
[2017-12-22] MEDS ORDERED: VANCOMYCIN PER PHARMACY MC PRN (10:30)
[2017-12-22] MEDS ORDERED: MIDAZOLAM 1 MG/ML, 2ML ONE (10:49)
[2017-12-22] MEDS ORDERED: FENTANYL PF 250 MCG/5ML ONE (10:51)
[2017-12-22] MEDS ORDERED: VANCOMYCIN 1,600 MG in SODIUM CHLORIDE 0.9% 250 ML IV ONE (11:00)
[2017-12-22] MEDS ORDERED: DEXAMETHASONE 4 MG/ML, 1ML ONE (11:36)
[2017-12-22] MEDS ORDERED: ONDANSETRON 2MG/ML, 2ML ONE (11:36)
[2017-12-22] MEDS ORDERED: LIDOCAINE 2% 100MG/5ML SYRINGE ONE (11:36)
[2017-12-22] MEDS ORDERED: CEFAZOLIN 1,000 MG ONE (11:36)
[2017-12-22] MEDS ORDERED: TRANEXAMIC ACID 1,000 MG in SODIUM CHLORIDE 0.9% 100 ML IV ONE (12:00)
[2017-12-22] MEDS ORDERED: OXYcodone 5 MG/5 ML ORAL.SOL UDC PO PRN (12:30)
[2017-12-22] MEDS ORDERED: MEPERIDINE/PF 25MG/0.5ML IVPush PRN (12:30)
[2017-12-22] MEDS ORDERED: MORPHINE SULFATE 4 MG/ML, 1ML IVPush PRN (12:30)
[2017-12-22] MEDS ORDERED: ALBUTEROL SULFATE 2.5 MG/3 ML NPPB PRN (12:30)
[2017-12-22] MEDS ORDERED: PROMETHAZINE 25 MG/ML, 1ML IV PRN (12:30)
[2017-12-22] MEDS ORDERED: LORazepam 2 MG/ML, 1ML IVPush PRN (12:30)
[2017-12-22] MEDS ORDERED: ACETAMINOPHEN 325 MG TABLET PO PRN (12:30)
[2017-12-22] MEDS ORDERED: FENTANYL PF 100 MCG/2ML ONE (13:14)
[2017-12-22] MEDS ORDERED: HYDROmorphone 2 MG/ML, 1ML ONE (13:15)
[2017-12-22] MEDS: FENTANYL PF 100 MCG/2ML IV PRN ×2 (13:17→13:22)
[2017-12-22] MEDS: HYDROmorphone 1 MG/ML, 1ML IV PRN ×4 (13:19→13:54)
[2017-12-22] MEDS ORDERED: LABETALOL 5MG/ML, 20ML ONE (13:27)
[2017-12-22] MEDS ORDERED: OXYcodone 5 MG/5 ML ORAL.SOL UDC ONE (13:27)
[2017-12-22] MEDS ORDERED: LORazepam 2 MG/ML, 1ML ONE (13:33)
[2017-12-22] MEDS ORDERED: LABETALOL 5MG/ML, 20ML IV PRN (14:00)
[2017-12-22 15:20] VITALS: BP 135/83
[2017-12-22 19:45] VITALS: BP 167/75
[2017-12-22] MEDS ORDERED: hydrOXyzine 50MG TABLET ONE (20:00)
[2017-12-22] MEDS: DIAZEPAM 5 MG TABLET PO PRN (22:32)
[2017-12-22 23:55] VITALS: BP 115/71
[2017-12-23] MEDS: OXYcodone IR 5MG TABLET PO PRN ×5 (01:54→20:15)
[2017-12-23] MEDS ORDERED: ONDA4TAB10 PO (02:36)
[2017-12-23 02:56] VITALS: BP 113/70
[2017-12-23 07:35] VITALS: BP 121/77
[2017-12-23] MEDS: LISINOPRIL 10 MG TABLET PO SCH ×2 (08:23→20:15)
[2017-12-23] MEDS: SERTRALINE 50MG TABLET PO SCH (08:23)
[2017-12-23] MEDS: ASPIRIN 81 MG TABLET EC PO SCH ×2 (08:23→20:14)
[2017-12-23] MEDS: hydrOXyzine 10MG TABLET PO SCH ×2 (08:24→20:14)
[2017-12-23] MEDS: morphine SULFATE 10 MG/ML, 1ML IVPush PRN ×2 (08:48→21:19)
[2017-12-23] MEDS: DIAZEPAM 5 MG TABLET PO PRN ×2 (09:02→17:01)
[2017-12-23 14:19] VITALS: BP 126/81
[2017-12-23] MEDS ORDERED: [UNRECOGNIZED DRUG - REMARK] MC SCH (15:00)
[2017-12-23 17:40] VITALS: BP 118/83
[2017-12-23 18:39] VITALS: BP 132/81
[2017-12-24] MEDS: DIAZEPAM 5 MG TABLET PO PRN (00:46)
[2017-12-24] MEDS: OXYcodone IR 5MG TABLET PO PRN ×4 (00:46→14:06)
[2017-12-24 01:21] VITALS: BP 152/90
[2017-12-24 05:14] LABS: BASOPHILS # (AUTO) 0.05 x10^3/uL (0-0.1); BASOPHILS % (AUTO) 1 % (0-1); EOSINOPHILS # (AUTO) 0.35 x10^3/uL (0-0.4); EOSINOPHILS % (AUTO) 5 % (1-7); LYMPHOCYTES # (AUTO) 2.26 x10^3/uL (1-3.4); LYMPHOCYTES % (AUTO) 32 % (22-44); MD NO; MEAN CORPUSCULAR HEMOGLOBIN 30.3 pg (27.0-34.8); MEAN CORPUSCULAR HGB CONC 33.8 g/dL (32.4-35.8); MEAN CORPUSCULAR VOLUME 89.7 fL (80-100); MEAN PLATELET VOLUME 8.1 fL (7.4-10.4); MONOCYTES # (AUTO) 0.63 x10^3/uL (0.2-0.8); MONOCYTES % (AUTO) 9 % (2-9); NEUTROPHILS # (AUTO) 3.85 x10^3/uL (1.8-6.8); NEUTROPHILS % (AUTO) 54 % (42-75); PLATELET COUNT 365 x10^3/uL (130-400); RED CELL DISTRIBUTION WIDTH 13.1 % (9.6-15.2)
[2017-12-24 05:17] LABS: ANION GAP 5 mmol/L (5-15); CALCIUM 8.8 mg/dL (8.5-10.1); CHLORIDE 106 mmol/L (98-107); CREATININE 0.82 mg/dL (0.55-1.02)
[2017-12-24 06:55] VITALS: BP 142/82
[2017-12-24] MEDS: SERTRALINE 50MG TABLET PO SCH (08:47)
[2017-12-24] MEDS: hydrOXyzine 10MG TABLET PO SCH (08:48)
[2017-12-24] MEDS: LISINOPRIL 10 MG TABLET PO SCH (08:49)
[2017-12-24] MEDS: ASPIRIN 81 MG TABLET EC PO SCH (08:50)
[2017-12-24 13:23] VITALS: BP 115/75
== END 2017-12-24 14:50 | disposition home health service (06) | DRG 468 ==
LOC: ED 16:09 → EDIP 16:40 → 4NOR 19:33 → DCLOUNGE 12-24 14:27
PROVIDERS: ADMIT Internal Medicine; ATTEND Internal Medicine
PROC: 0SSBXZZ Reposition Left Hip Joint, External Approach (ICD-10-PCS; 2017-12-21)
PROC: 0SPB09Z Removal of Liner from Left Hip Joint, Open Approach (ICD-10-PCS; 2017-12-22)
PROC: 0SUS09Z Supplement Left Hip Joint, Femoral Surface with Liner, Open Approach (ICD-10-PCS; 2017-12-22)
PROC: 0SCB0ZZ Extirpation of Matter from Left Hip Joint, Open Approach (ICD-10-PCS; 2017-12-22)
PROC: 0SWB0JZ Revision of Synthetic Substitute in Left Hip Joint, Open Approach (ICD-10-PCS; principal; 2017-12-22 11:30)
DX: M24.452 Recurrent dislocation, left hip (principal); D72.829 Elevated white blood cell count, unspecified; F17.200 Nicotine dependence, unspecified, uncomplicated; F32.9 Major depressive disorder, single episode, unspecified; F12.90 Cannabis use, unspecified, uncomplicated; R79.89 Other specified abnormal findings of blood chemistry; G47.00 Insomnia, unspecified; I11.9 Hypertensive heart disease without heart failure; M19.90 Unspecified osteoarthritis, unspecified site; W19.XXXA Unspecified fall, initial encounter; Y92.239 Unspecified place in hospital as the place of occurrence of the external cause; Z91.19 Patient's noncompliance with other medical treatment and regimen; Z96.643 Presence of artificial hip joint, bilateral; Y93.89 Activity, other specified; Z90.89 Acquired absence of other organs; Y99.8 Other external cause status; Z79.899 Other long term (current) drug therapy; Z79.82 Long term (current) use of aspirin
CPT/HCPCS: 27250; 36415; 72170; 80048; 80307; 81025; 82040; 83880; 84484; 85025; 85610; 93005; 96374; 99152; C1713; J0171; J0690; J1100; J1170; J1885; J2250; J2405; J2704; J2795; J3010; J3370; C1776; J0360; J2060; J2270; J7030; J7050

== ENCOUNTER → 2019-06-28 | Outpatient (CLI) | payer MEDICARE, MEDICAID ==
[~2019-06-28] MED LIST changes: +ONDA4TAB10 PO; +SERT100T32 PO; +SERT50TA28 PO; -SERT50TA5 PO
== END | disposition home or self-care (01) ==
LOC: RAD 08:12
PROVIDERS: ATTEND Physician Assistant
DX: K70.0 Alcoholic fatty liver (principal); K22.4 Dyskinesia of esophagus; K29.60 Other gastritis without bleeding; B18.2 Chronic viral hepatitis C; F12.10 Cannabis abuse, uncomplicated; F17.200 Nicotine dependence, unspecified, uncomplicated
CPT/HCPCS: 74241; 76700

== ENCOUNTER 2019-07-15 15:55 | Outpatient (CLI) | payer MEDICARE, MEDICAID | END 2019-07-15 23:59 | disposition home or self-care (01) | LOC: CFH 15:55 | PROVIDERS: ATTEND Internal Medicine Cardiovascular Disease | DX: I34.0 Nonrheumatic mitral (valve) insufficiency (principal); I10 Essential (primary) hypertension | CPT/HCPCS: 93306 ==

== ENCOUNTER → 2019-08-10 | Outpatient (CLI) | payer MEDICARE, MEDICAID ==
[~2019-08-10] MED LIST changes: +HYDR-2995 PO; -HYDR10TA4 PO; +REGADENOSON 0.4 MG/5 ML SYRINGE ONE
[2019-08-10 12:54] LABS: BASOPHILS # (AUTO) 0.04 x10^3/uL (0-0.1); BASOPHILS % (AUTO) 1 % (0-1); EOSINOPHILS # (AUTO) 0.11 x10^3/uL (0-0.4); EOSINOPHILS % (AUTO) 2 % (1-7); LYMPHOCYTES # (AUTO) 1.91 x10^3/uL (1-3.4); LYMPHOCYTES % (AUTO) 28 % (22-44); MD NO; MEAN CORPUSCULAR HGB CONC 33.6 g/dL (32.4-35.8); MEAN CORPUSCULAR VOLUME 86.5 fL (80-100); MEAN PLATELET VOLUME 8.4 fL (7.4-10.4); MONOCYTES # (AUTO) 0.44 x10^3/uL (0.2-0.8); MONOCYTES % (AUTO) 6 % (2-9); NEUTROPHILS # (AUTO) 4.47 x10^3/uL (1.8-6.8); NEUTROPHILS % (AUTO) 64 % (42-75); PLATELET COUNT 299 x10^3/uL (130-400); RED BLOOD COUNT 4.52 x10^6/uL (3.82-5.3); RED CELL DISTRIBUTION WIDTH 14.2 % (9.6-15.2)
[2019-08-10 13:13] LABS: ALANINE AMINOTRANSFERASE 20 U/L (12-78); ALBUMIN 4.3 g/dL (3.4-5.0); ANION GAP 7 mmol/L (5-15); CALCIUM 9.5 mg/dL (8.5-10.1); CHLORIDE 105 mmol/L (98-107); CREATININE 1.29 mg/dL (0.55-1.02)
[2019-08-10 13:15] LABS: ALKALINE PHOSPHATASE 127 U/L (45-117); BILIRUBIN,TOTAL 0.3 mg/dL (0.2-1.0); TOTAL PROTEIN 8.8 g/dL (6.4-8.2)
== END | disposition home or self-care (01) ==
LOC: CFH 07:44
PROVIDERS: ATTEND Internal Medicine Cardiovascular Disease
DX: R07.9 Chest pain, unspecified (principal); R94.31 Abnormal electrocardiogram [ECG] [EKG]; I51.7 Cardiomegaly
CPT/HCPCS: 36415; 78452; 80053; 85025; 87522; 93017; A9502; J2785

== ENCOUNTER → 2020-02-16 | Outpatient (CLI) | payer MEDICARE, MEDICAID ==
[~2020-02-16] MED LIST changes: -REGADENOSON 0.4 MG/5 ML SYRINGE ONE
== END | disposition home or self-care (01) ==
LOC: RAD 08:55
PROVIDERS: ATTEND Physician Assistant
DX: R07.89 Other chest pain (principal)
CPT/HCPCS: 74220

== ENCOUNTER 2021-01-24 17:05 | Emergency (ER) | payer MEDICARE, MEDICAID ==
[~2021-01-24] VITALS: Ht 167.6 cm; Wt 74.2 kg
[~2021-01-24 17:05] MED LIST changes: -ASPI-515 PO; +ASPI-963 PO; +HYDR-2214 PO; -HYDR-3240 PO
--- NOTE | 2021-01-24 17:07 | NUR ---
PT BROUGTH IN BY VAUGHN WITH CHIEF COMPLAINT OF ANGIOEDEMA STARTING ABOUT 1 HR AGO. PT HX OF REACTION TO LISINOPRIL, RECENTLY RESTARTED LISINOPRIL. PT A&O, SPO2 98 ROOM AIR HENRIQUE TAMAYO AT BEDSIDE.
--- NOTE | 2021-01-24 17:27 | NUR ---
PT RESTING IN BED, NO COMPLAINTS AT THIS TIME.
[2021-01-24 17:28] VITALS: BP 150/89
--- NOTE | 2021-01-24 18:03 | NUR ---
DC INSTRUCTIONS REVIEWED.
== END 2021-01-24 18:33 | disposition home or self-care (01) ==
LOC: ED 18:00
DX: T78.3XXA Angioneurotic edema, initial encounter (principal); R94.31 Abnormal electrocardiogram [ECG] [EKG]; I10 Essential (primary) hypertension
CPT/HCPCS: 93005; 99283